=== PATIENT | male | born 1945 | race Hispanic/Latino ===

== ENCOUNTER 2018-04-11 08:29 | Observation (INO) | payer MEDICARE, BC ==
[2018-04-11 08:32] VITALS: BMI 34.4
[2018-04-11] MEDS ORDERED: Albuterol-Ipratrop 3 mg / 0.5 (3 ml) UD IH STA (09:17)
--- NOTE | 2018-04-11 09:19 | ED PDOC ---
Arrival/HPI - General Chief Complaint: Shortness Of Breath Time Seen by Provider: 04/11/18 08:32 Historian: Patient - History of Present Illness Narrative History of Present Illness (Text): 04/11/18 09:15 72 y/o male, pmh including asthma/htn, nkda, c/o shortness of breath with exertion x 1 week. Pt. stated that he has shortness of breath with exertion, aggravated by walking for the past 1 week, sleeping and get up in the middle of the night with difficulty catching breath, feels better when the bed is elevated, no headache, no night sweat, no rash, no dizziness, no change in vision, no numbness or tingling, no other medical or psychological complaints. Past Medical History - Provider Review Nursing Documentation Reviewed: Yes - Infectious Disease Hx of Infectious Diseases: None - Cardiac Hx Hypertension: Yes - Psychiatric Hx Substance Use: No - Surgical History Other/Comment: L ankle. L maureen. R shoulder. R arm - Anesthesia Hx Anesthesia Reactions: No Hx Malignant Hyperthermia: No Family/Social History - Physician Review Nursing Documentation Reviewed: Yes Family/Social History: Unknown Family HX Smoking Status: Never Smoked Hx Alcohol Use: No Hx Substance Use: No Allergies/Home Meds Allergies/Adverse Reactions: Allergies No Known Allergies Allergy (Verified 04/11/18 08:33) Home Medications: Home Meds Medication Instructions Recorded Confirmed Lisinopril [Zestril] 20 mg PO DAILY 04/11/18 04/11/18 Terazosin [Hytrin] 2 mg PO DAILY 04/11/18 04/11/18 Review of Systems - Review of Systems Constitutional: absent: Fatigue, Fevers Eyes: absent: Vision Changes ENT: absent: Hearing Changes Respiratory: SOB, Wheezing. absent: Cough, Sputum Cardiovascular: Edema. absent: Chest Pain Gastrointestinal: absent: Abdominal Pain, Nausea, Vomiting Musculoskeletal: absent: Arthralgias, Back Pain Skin: absent: Rash, Pruritis Neurological: absent: Headache, Dizziness Psychiatric: absent: Anxiety, Depression Physical Exam Vital Signs Reviewed: Yes Vital Signs Temp Pulse Resp BP Pulse Ox 04/11/18 08:30 98.4 F 89 20 201/142 H 97 Temperature: Afebrile Blood Pressure: Hypertensive Pulse: Regular Respiratory Rate: Normal Appearance: Positive for: Well-Appearing, Non-Toxic, Comfortable Pain Distress: None Mental Status: Positive for: Alert and Oriented X 3 - Systems Exam Head: Present: Atraumatic, Normocephalic Pupils: Present: PERRL Extroacular Muscles: Present: EOMI Conjunctiva: Present: Normal Mouth: Present: Moist Mucous Membranes Neck: Present: Normal Range of Motion Respiratory/Chest: Present: Clear to Auscultation, Good Air Exchange, Wheezes (mild RLL), Rhonchi (RLL). No: Respiratory Distress, Accessory Muscle Use, Rales, Retracting, Tachypneic, Tender to Palpation Cardiovascular: Present: Regular Rate and Rhythm, Normal S1, S2, Other (1+ pedal edema on bilateral LE). No: Murmurs Abdomen: No: Tenderness, Distention, Peritoneal Signs Back: Present: Normal Inspection. No: Midline Tenderness, Paraspinal Tenderness Upper Extremity: Present: Normal Inspection. No: Cyanosis, Edema Lower Extremity: Present: Normal Inspection, NORMAL PULSES, Normal ROM, Capillary Refill < 2 s. No: Edema, Deformity Neurological: Present: GCS=15, CN II-XII Intact, Speech Normal, Motor Func Grossly Intact, Gait Normal, Memory Normal Skin: Present: Warm, Dry, Normal Color. No: Rashes Psychiatric: Present: Alert, Oriented x 3, Normal Insight, Normal Concentration Medical Decision Making ED Course and Treatment: 04/11/18 09:17 -labs -ekg -cxr/venuous doppler -Duoneb/aspirin/nitro -housing grant analyst -Observe and reassess 04/11/18 11:17 -EKG: SR @ 90 BPM with 1st degree AV block, no ST elevation or depression, T wave inversion noted on the lead I and aVL, no previous ekg available for [facility] abril. -Chest xray: ER wet read mild cardiomegaly with vascular congestion -Bilateral LE Venuous doppler: as per preliminary report, no acute DVT -Labs show acute findings except BUN 22 (mildly dehydrated, tolerating oral fluid) -Mg 2.3, mildly elevated, normal creatine -Trop 0.02, will need trending -BNP 1430, new onset, consistent with CHF and his HPI/Physical exam -I discussed all labs/radiology results with the patient and family, they agreed to be admitted for further work up/treatment and conflict resolution professional consult along with troponin trending -IV Lasix 40mg ordered. 04/11/18 11:47 -I spoke to Dr. Ernesto Walton, discussed about the labs/radiology results, agreed to admit to his service as he is covering DR. Ezekiel Aguilera, request Dr. Héctor garcia, Ciaio Counter Molder on the consult, consult ordered and already told the laboratory secretary to notify about this consult. 04/11/18 11:53 -Pt. still has elevated BP, lisinopril (home med) 20mg and clonidine 0.1mg po ordered. - RAD Interpretation Radiology Orders: 04/11/18 09:12 CHEST TWO VIEWS (PA/LAT) [RAD] Stat DUPLEX LOWER EXTRM VEIN BILAT [US] Stat -Chest xray: Date of service: 04/11/2018 HISTORY: sob x 1 week COMPARISON: No prior. TECHNIQUE: Chest PA and lateral FINDINGS: LUNGS: No active pulmonary disease. PLEURA: No significant pleural effusion identified. No pneumothorax apparent. CARDIOVASCULAR: No aortic atherosclerotic calcification present. Mild cardiomegaly minimal vascular congestion OSSEOUS STRUCTURES: No significant abnormalities. VISUALIZED UPPER ABDOMEN: Normal. OTHER FINDINGS: None. IMPRESSION: Mild cardiomegaly minimal vascular congestion -Bilateral LE Venuous dopple: as per preliminary report, no acute DVT HISTORY: Leg pain and swelling. Evaluate for DVT PHYSICIAN(S): Héctor Aguilera MD. TECHNIQUE: Duplex sonography and color-flow Doppler with graded compression were used to evaluate the deep venous systems of both lower extremities. FINDINGS: The visualized deep venous systems of both lower extremities are sonographically normal and compressible. Normal wave forms and augmentation are seen. There is no sonographic evidence for deep venous thrombosis in the visualized segments of both lower extremities. IMPRESSION: No sonographic evidence for deep venous thrombosis in the visualized segments of both lower extremities. Prior Authorization Nurse: Radiologist - EKG Interpretation EKG Interpretation (Text): 04/11/18 09:20 SR @ 90 BPM with 1st degree AV block, no ST elevation or depression, T wave inversion noted on the lead I and aVL, no previous ekg available for comparison. Interpreted by ED Physician: Yes Type: 12 lead EKG Comparison: No previous EKG avail. - Medication Orders Current Medication Orders: Aspirin (Aspirin) 325 mg PO STAT STA Stop: 04/11/18 09:14 - PA / HOT STAMP OPERATOR / Resident Statement / has reviewed & agrees with the documentation as recorded. Disposition/Present on Arrival - Present on Arrival Any Indicators Present on Arrival: No History of DVT/PE: No History of Uncontrolled Diabetes: No Urinary Catheter: No History of Decub. Ulcer: No History Surgical Site Infection Following: None - Disposition Have Diagnosis and Disposition been Completed?: Yes Diagnosis: Abnormal EKG, SOB (shortness of breath) on exertion, CHF (congestive heart failure) Disposition: HOSPITALIZED Disposition Time: 10:28 Patient Plan: Admission, Observation Patient Problems: Current Active Problems Problem Status Onset Abnormal EKG Acute SOB (shortness of breath) on exertion Acute CHF (congestive heart failure) Acute Condition: GUARDED
[2018-04-11 09:55] LABS: BASO # 0.02 K/mm3 (0.0-2.0); BASO % 0.3 % (0.0-3.0); EOS # 0.2 (0.0-0.7); EOS % 3.5 % (1.5-5.0); GRAN # 4.12 (1.4-6.5); GRAN % 67.8 % (50.0-68.0); HEMOGLOBIN 13.5 g/dL (14.0-18.0); LYMPH # 1.3 (1.2-3.4); LYMPH % 20.7 % (22.0-35.0); MEAN CELL VOLUME 82.3 fl (80.0-105.0); MEAN CORPUSCULAR HEMOGLOBIN 26.8 pg (25.0-35.0); MEAN CORPUSCULAR HGB CONC 32.6 g/dl (31.0-37.0); MEAN PLATELET VOLUME 10.3 fl (7.0-11.0); MONO # 0.5 (0.1-0.6); MONO % 7.7 % (1.0-6.0); RBC 5.03 10^6/uL (3.5-6.1); WHITE BLOOD COUNT 6.1 10^3/uL (4.5-11.0)
[2018-04-11 10:00] LABS: INR 1.02; PARTIAL THROMBOPLASTIN TIME 30.8 Seconds (25.1-36.5); PROTHROMBIN TIME 11.7 SECONDS (9.4-12.5)
[2018-04-11 10:08] LABS: ALB/GLOB RATIO 1.3 (1.1-1.8); ALBUMIN 4.4 g/dL (3.0-4.8); ALT/SGPT 25 U/L (7-56); AST/SGOT 20 U/L (17-59); BLOOD UREA NITROGEN 22 mg/dL (7-21); CALCIUM 9.1 mg/dL (8.4-10.5); GFR NON-AFRICAN AMERICAN 54
[2018-04-11 10:19] LABS: B-TYPE NATRIURETIC PEPTIDE 1430 pg/mL (0-450); TROPONIN I 0.02 ng/mL
--- NOTE | 2018-04-11 11:07 | RAD ---
Date of service: 04/11/2018 HISTORY: sob x 1 week COMPARISON: No prior. TECHNIQUE: Chest PA and lateral FINDINGS: LUNGS: No active pulmonary disease. PLEURA: No significant pleural effusion identified. No pneumothorax apparent. CARDIOVASCULAR: No aortic atherosclerotic calcification present. Mild cardiomegaly minimal vascular congestion OSSEOUS STRUCTURES: No significant abnormalities. VISUALIZED UPPER ABDOMEN: Normal. OTHER FINDINGS: None. IMPRESSION: Mild cardiomegaly minimal vascular congestion
--- NOTE | 2018-04-11 12:11 | US ---
HISTORY: Leg pain and swelling. Evaluate for DVT PHYSICIAN(S): Héctor Aguilera MD. TECHNIQUE: Duplex sonography and color-flow Doppler with graded compression were used to evaluate the deep venous systems of both lower extremities. FINDINGS: The visualized deep venous systems of both lower extremities are sonographically normal and compressible. Normal wave forms and augmentation are seen. There is no sonographic evidence for deep venous thrombosis in the visualized segments of both lower extremities. IMPRESSION: No sonographic evidence for deep venous thrombosis in the visualized segments of both lower extremities.
[2018-04-11] MEDS ORDERED: Nitroglycerin 50mg in D5W 50 MG/250 ML BOTTLE IV ONE (12:42)
--- NOTE | 2018-04-11 14:10 | CARD ---
APPROVED REPORT Date of service: 04/11/2018 EKG Measurement Heart [id number] <Conclusion> Sinus rhythm with 1st degree AV block ST & T wave abnormality, consider lateral ischemia Prolonged QT Abnormal ECG
--- NOTE | 2018-04-11 18:40 | CON ---
DATE: 04/11/2018 CARDIOLOGY CONSULTATION HISTORY: The patient is a 72-year-old male, who suffers from uncontrolled hypertension, who presents with 1 month of shortness of breath. PAST MEDICAL HISTORY: The patient's past medical history includes hypertension. He denies smoking. Denies diabetes mellitus. No previous cardiac history, although he has no previous cardiac workup in the past. SOCIAL HISTORY: He does not smoke. He does ride a motorbike daily. REVIEW OF SYSTEMS: Fourteen-point review of systems is reviewed in detail. He does experience occasional substernal chest pressure. No positive edema. PHYSICAL EXAMINATION: VITAL SIGNS: Blood pressure 193/120, heart rate is in the 70s. NECK: Negative JVD. LUNGS: Without rales. CARDIAC: Heart rate S1, S2. EXTREMITIES: Trace edema. EKG shows normal sinus rhythm with nonspecific ST-T changes. LABORATORY DATA: BUN and creatinine are unremarkable. ProBNP is 1430. Troponin is negative. Hemoglobin is 13.5. IMPRESSION: 1. Accelerated hypertension. 2. Acute systolic congestive heart failure. 3. Left ventricular hypertrophy with decreased left ventricular function on echocardiogram. 4. Pedal edema. 5. Dyspnea. PLAN: Given these findings, we will continue on Lasix. We will start the patient on lisinopril and clonidine as well as diuretics. We will rule out myocardial infarction, and the patient is to be admitted to telemetry. Héctor Jain MD
[2018-04-11] MEDS ORDERED: Influenza Vaccine 60 mcg/0.5 mL SYR (4YR UP) IM ONE (21:31)
[2018-04-11] MEDS ORDERED: Pneumococcal 23-Valent Vaccine IM ONE (21:31)
[2018-04-12 00:29] VITALS: O2SAT 96
--- NOTE | 2018-04-12 01:23 | HP ---
DATE OF EXAM: 04/11/2018 HISTORY OF PRESENT ILLNESS: I was called to see Roberto in the [facility]. He comes in being very short of breath for at least a week especially last couple of days with exertion. He is a 72-year-old white male who comes in with shortness of breath with exertion. He has also been eating a lot of salty foods the past few days for the holidays, not taking his medicines either the water pill or his blood pressure pill and he got very full of fluids. His legs are very swollen and he stopped taking the water pills go to the bathroom all the time. PAST MEDICAL HISTORY: Including asthma, hypertension, and CHF. PAST SURGICAL HISTORY: He has a left ankle, left knee, right shoulder, and right arm surgeries. FAMILY HISTORY: Unknown family history. SOCIAL HISTORY: No smoker. No drinking. No drugs. ALLERGIES: NO KNOWN DRUG ALLERGIES. MEDICATIONS: He is supposed toHytrin, I believe. There is also a water pill possibly hydrochlorothiazide not sure he did not remember. REVIEW OF SYSTEMS: No acute fatigue or fevers. No vision changes. No hearing changes. He has shortness of breath. He had wheezing. No cough or sputum. Edema both ankles very swollen. No abdominal pain. No nausea, vomiting, constipation, or diarrhea. No arthralgias. No back pain. No skin rashes or ulcers appreciated. No headache or dizziness. No anxiety or depression. PHYSICAL EXAMINATION: GENERAL: Alert and oriented x3. Well appearing, nontoxic. He was toxic in the ER now, he is nontoxic after I gave him Lasix IV in the emergency room. VITAL SIGNS: He has 98.4 temperature, 89 pulse, 20 respiratory rate, 201/142 blood pressure is faisal high, and 97% O2 sat. HEENT: Head is atraumatic and normocephalic. Extraocular muscles are intact. Pupils are equally reactive to light and accommodation. Throat is moist. NECK: Supple. HEART: Regular rate. Normal S1 and S2, +1/4 pitting edema. LUNGS: Decreased breath sounds bilaterally. He had wheezes right lower lung, rhonchi. ABDOMEN: Soft and nontender. Positive bowel sounds. Mildly obese. EXTREMITIES: edema of lower extremities. NEUROLOGIC: GCS is 15. Cranial nerves II through XII grossly intact. Speech is normal. He is feeling better now after the Lasix. Alert and oriented x3. SKIN: Warm and dry. No apparent rashes or ulcers. LABORATORY DATA: He had multiple issues. He had an ultrasound of the extremities, which were normal. Electrocardiogram, which is okay. Chest x-ray showed minimal vascular congestion. Echocardiogram is pending. He was given in the emergency room Zestril, Nitrostat, Lasix 40 IV, DuoNebs, Catapres, and aspirin. He is now on Zestril, Lasix, Ecotrin, and Catapres. He had 140 sodium, potassium 4.5, BUN 22, creatinine 1.3, GFR is 54, sugar is 102, calcium is 9.1, magnesium is 2.3, total bili is 0.8, AST is 20, ALT is 25, and alk phos is 75. Troponin I is 0.02. BNP was high at 1430. Total protein 7.7 and albumin is 4.4. INR is 1.02. White count 6.1, hemoglobin 13.5, hematocrit 41.4, and platelets 206. ASSESSMENT AND PLAN: He will have a consults with Cardiology. He is here for congestive heart failure, hypertensive, and dyspnea on exertion. He is on observation level of care. Hopefully he will improve quickly. He is on observation, hopefully we can discharge him tomorrow and we will see him on the outpatient after that. Thank you very much. Ernesto Walton DO [facility]
[2018-04-12 07:49] LABS: HEMOGLOBIN 14.2 g/dL (14.0-18.0); MEAN CELL VOLUME 80.8 fl (80.0-105.0); MEAN CORPUSCULAR HEMOGLOBIN 26.9 pg (25.0-35.0); MEAN CORPUSCULAR HGB CONC 33.3 g/dl (31.0-37.0); MEAN PLATELET VOLUME 10.1 fl (7.0-11.0); RBC 5.27 10^6/uL (3.5-6.1); RED CELL DISTRIBUTION WIDTH 13.8 % (11.5-14.5); WHITE BLOOD COUNT 6.5 10^3/uL (4.5-11.0)
[2018-04-12 08:25] LABS: ALB/GLOB RATIO 1.3 (1.1-1.8); ALBUMIN 4.7 g/dL (3.0-4.8); ALT/SGPT 18 U/L (7-56); AST/SGOT 21 U/L (17-59); BLOOD UREA NITROGEN 22 mg/dL (7-21); CALCIUM 9.4 mg/dL (8.4-10.5); GFR NON-AFRICAN AMERICAN 59
[2018-04-12 17:47] VITALS: RESP 20; TEMP 97.9
--- NOTE | 2018-04-12 18:13 | PN ---
DATE: 04/12/2018 SUBJECTIVE: I was hoping to possibly discharge him today after he was diuresed. When I saw him this morning, he tells me he is feeling a lot better, he is walking better. The problem is that his blood pressure is quite high. He has been on Catapres 0.2, Lasix IV and Zestril, and he says that Zestril makes his blood pressure go up, so he stopped taking it. PHYSICAL EXAMINATION VITAL SIGNS: He has 98.1 temp; 70 pulse; blood pressure has been as high as 193/120, also 194/112, also 181/111 and also 177/113 with 19 respiratory rate. They are too high for me to let him go home at this time, although he wants to go home. GENERAL: He is comfortable. No headache. No chest pain. HEENT: His head is atraumatic and normocephalic. HEART: Regular rate. LUNGS: Clear to auscultation. ABDOMEN: Soft. EXTREMITIES: Trace edema if any. I think the IV Lasix made a difference. LABORATORY DATA: White count 6.5, hemoglobin 14.2, hematocrit 42.6, platelets 208. INR is 1.02. He had 140 sodium, potassium 4, BUN 22, creatinine 1.2, GFR is 59, sugar is 93, calcium is 9.4, magnesium is 2.3, total bili is 1.1, AST is 21, ALT is 18 and alk phos is 81. Troponin I was 0.02. BNP was 1430. Total protein was 8.5. I increased his Catapres to 0.2 t.i.d. and added Norvasc 5 and stopped Zestril, which he refuses to take, waiting for Cardiology to see him. I am hoping that he could be discharged tomorrow if things go well. We will keep him overnight one more time. We will keep him in observation level of care. The patient had CHF and hypertension. Ernesto Walton DO
--- NOTE | 2018-04-13 09:10 | DS ---
HISTORY OF PRESENT ILLNESS: He is sitting out of bed. He is very alert and comfortable. No chest pain. No shortness of breath. No abdominal pain. He is walking all over the place. He has no headaches. He tells me he is going today. He is here for 2 days of observation with elevated blood pressures size 220/120, now his blood pressure is at least 185/90. I discussed with wrapper stripper with Dr. Jain. We both together. He is on Catapres 0.2 three times a day, Ecotrin 81 mg daily, Lasix 40 daily and Norvasc is up to 10 mg daily. PHYSICAL EXAMINATION: VITAL SIGNS: He has a 97.9 temp, 69 pulse and 185/90 blood pressure. HEENT: Head is atraumatic and normocephalic. HEART: Regular rate. LUNGS: Decreased breath sounds, but clear. ABDOMEN: Soft. EXTREMITIES: No edema. He is doing better when he came in, but still he has got some blood pressure issues. He is here for stress test , see him in the office on Wednesday, Wednesday next week. LABORATORY DATA: His white count 6.5, hemoglobin 14.2, hematocrit 42.6 and platelet 208. He has a sodium 140, potassium 4, BUN is 22, creatinine 1.2, GFR is 59, sugar is 93, calcium is 9.4, total bili is 1.1, AST is 21, ALT is 18, alk phos 81 and total protein is 8.5. He will be discharged, stress test this Wednesday with Dr. Jain and Dr. Walton's office next Wednesday and Wednesday. Ernesto Walton DO [facility]
--- NOTE | 2018-04-13 09:19 | PN ---
DATE: 04/13/2018 SUBJECTIVE: The patient is insisting on going home. He feels a little better, shortness of breath is better. PHYSICAL EXAMINATION: VITAL SIGNS: Blood pressure 185/90. NECK: Negative JVD. LUNGS: Without rales. HEART: Reveals S1, S2. EXTREMITIES: Without edema. LABORATORY DATA: BUN and creatinine are unremarkable. Potassium is 4.0, hemoglobin is 14.2. IMPRESSION: 1. Acute diastolic and systolic congestive heart failure. 2. Accelerated hypertension. 3. Left ventricular hypertrophy. 4. Dilated cardiomyopathy. Given these findings, I have discussed with the patient about his need for better blood pressure. The patient insisted on ongoing home today on medications. He is scheduled for a stress test on Wednesday. We will consider after aggressive control of his blood pressure to see whether we need to rule out renal artery stenosis. Héctor Jain MD
[2018-04-13 09:25] VITALS: BP 154/92; PULSE 66
--- NOTE | 2018-04-13 12:29 | CARD ---
APPROVED REPORT Date of service: 04/11/2018 EXAM: Two-dimensional and M-mode echocardiogram with Doppler and color Doppler. INDICATION Dyspnea 2D DIMENSIONS Left Atrium (2D)4.7 (1.6-4.0cm)IVSd1.6 (0.7-1.1cm) LVDd5.4 (3.9-5.9cm)PWd1.3 (0.7-1.1cm) LVDs4.2 (2.5-4.0cm)FS (%) 20.7 % LVEF (%)41.7 (>50%) M-Mode DIMENSIONS Aortic Root2.60 (2.2-3.7cm)Aortic Cusp Exc.1.80 (1.5-2.0cm) Aortic Valve AoV Peak Ysfsnlfl934.0cm/Rogelio Peak GR.6mmHgAI P 1/2 [id number] Mitral Valve MV E Lxebwsvm16.0cm/sMV A Rgmckezh83.0cm/sE/A ratio1.4 TDI E/Lateral E'0.0E/Medial E'0.0 Tricuspid Valve TR Peak Stsbpsat657md/sRAP [id number] Peak Gr.14mmHg [id number] LEFT VENTRICLE There is moderate concentric left ventricular hypertrophy. The systolic function is mildly impaired. RIGHT VENTRICLE The right ventricle is normal size. ATRIA The left atrium is mildly dilated. The right atrium size is normal. AORTIC VALVE The aortic valve is thickened but opens well. There is mild aortic regurgitation. MITRAL VALVE The mitral valve is thickened but opens well. Mitral regurgitation is mild. TRICUSPID VALVE The tricuspid valve leaflets are thickened , but open well. There is trace to mild tricuspid regurgitation. There is no pulmonary hypertension. PULMONIC VALVE The pulmonic valve is not well visualized. PERICARDIAL EFFUSION There is no pericardial effusion. <Conclusion> LVH with midl LV hypokinesis DIlated LA Mild AI, MR and TR No pulmonary hypertension
== END 2018-04-13 10:00 | disposition home or self-care (01) ==
LOC: ED 08:29 → ERH 11:53 → 2RSO 17:00
PROVIDERS: ADMIT Family Medicine; ATTEND Family Medicine
DX: I11.0 Hypertensive heart disease with heart failure (principal); I50.41 Acute combined systolic (congestive) and diastolic (congestive) heart failure; I42.0 Dilated cardiomyopathy; J45.909 Unspecified asthma, uncomplicated
CPT/HCPCS: 36415; 71046; 80053; 83735; 83880; 84484; 85025; 85027; 85610; 85730; 93005; 93306; 93970; 94640; 96374; 96375; 96376; 99285; G0378; J0360; J1940